=== PATIENT | female | born 1990 ===

== ENCOUNTER 2018-02-12 14:06 | Emergency (ER) | payer MEDICAID ==
[~2018-02-12] VITALS: Ht 160 cm; Wt 68.2 kg
[2018-02-12] MEDS ORDERED: IBUPROFEN 800 MG TABLET PO ONE (15:00)
[2018-02-12 15:12] VITALS: BP 118/60
== END 2018-02-12 15:15 | disposition home or self-care (01) ==
LOC: EMS 14:08
DX: J00 Acute nasopharyngitis [common cold] (principal)